=== PATIENT | female | born 1980 | race Caucasian/White ===

== ENCOUNTER 2020-02-04 18:50 | Emergency (ER) | payer SELFPAY ==
[2020-02-04 18:57] VITALS: BP 156/107; PULSE 102; RESP 18; TEMP 36.4; O2SAT 96; BMI 34.1
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
[2020-02-04 22:50] VITALS: BP 156/61; PULSE 72; RESP 18; O2SAT 95
[2020-02-06 07:48] LABS: Coronavirus Lab Test PTC NOT DETECTED
--- NOTE | 2020-02-06 08:58 | PC.NURSE ---
Pt called and notified of negative COVID test results
== END 2020-02-04 22:52 | disposition home or self-care (01) ==
PROVIDERS: Emergency Provider Emergency Medicine; PCP Family Medicine
DX: J06.9 Acute upper respiratory infection, unspecified (principal)
CPT/HCPCS: 12345; 71045; 87635; 99282; 99283

== ENCOUNTER 2020-02-23 13:33 | Emergency (ER) | payer MEDICAID, SELFPAY ==
[2020-02-23 13:40] VITALS: BP 167/90; PULSE 97; RESP 14; TEMP 37.7; O2SAT 98; BMI 36.1
[2020-02-23 13:59] VITALS: BP 121/64; PULSE 97; RESP 18; O2SAT 97
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
[2020-02-23] MEDS: acetaminophen 500 mg Tablet 1000 MG PO (14:15)
[2020-02-23 14:28] VITALS: BP 121/64; PULSE 88; RESP 18; O2SAT 95
[2020-02-23 15:41] VITALS: BP 140/91; PULSE 59; RESP 18; O2SAT 95
[2020-02-23] MEDS: ondansetron 4 MG Tablet PO (16:03)
[2020-02-23 16:05] VITALS: BP 139/79; PULSE 78; RESP 18; O2SAT 97
== END 2020-02-23 16:10 | disposition home or self-care (01) ==
PROVIDERS: Emergency Provider Physician Assistant; PCP Family Medicine
DX: S40.012A Contusion of left shoulder, initial encounter (principal); S20.212A Contusion of left front wall of thorax, initial encounter; Y04.2XXA Assault by strike against or bumped into by another person, initial encounter; Z79.82 Long term (current) use of aspirin
CPT/HCPCS: 12345; 70450; 70486; 71101; 72125; 73030; 99281; 99283; Q0162

== ENCOUNTER → 2020-04-20 10:35 | Outpatient (BNVA) | payer MEDICAID, SELFPAY | PROVIDERS: PCP Family Medicine; Visit Provider Obstetrics & Gynecology | DX: Z12.4 Encounter for screening for malignant neoplasm of cervix (principal); E28.2 Polycystic ovarian syndrome | CPT/HCPCS: 84402; 84403; 88175 ==

== ENCOUNTER → 2020-05-27 14:21 | Outpatient (BNVA) | payer MEDICAID, SELFPAY | PROVIDERS: PCP Family Medicine; Visit Provider Obstetrics & Gynecology | DX: N90.7 Vulvar cyst (principal) | CPT/HCPCS: 88304 ==

== ENCOUNTER → 2020-06-01 08:51 | Outpatient (BNVA) | payer MEDICAID, SELFPAY | PROVIDERS: PCP Family Medicine; Visit Provider Psychiatry & Neurology Psychiatry | DX: F43.12 Post-traumatic stress disorder, chronic (principal); F60.3 Borderline personality disorder; F31.9 Bipolar disorder, unspecified; F10.21 Alcohol dependence, in remission; F15.21 Other stimulant dependence, in remission; F41.1 Generalized anxiety disorder | CPT/HCPCS: 99204 ==

== ENCOUNTER → 2020-07-23 08:57 | Outpatient (BNVA) | payer MEDICAID, SELFPAY | PROVIDERS: PCP Family Medicine; Visit Provider Psychiatry & Neurology Psychiatry | DX: F31.9 Bipolar disorder, unspecified (principal); F43.12 Post-traumatic stress disorder, chronic; F60.3 Borderline personality disorder; F15.21 Other stimulant dependence, in remission; F10.21 Alcohol dependence, in remission | CPT/HCPCS: 99213; 99214 ==

== ENCOUNTER → 2020-07-26 09:12 | Outpatient (BNVA) | payer MEDICAID, SELFPAY | PROVIDERS: PCP Family Medicine; Visit Provider Psychiatry & Neurology Psychiatry | DX: F31.9 Bipolar disorder, unspecified (principal) | CPT/HCPCS: 80053; 80061; 83036; 84443; 85025 ==

== ENCOUNTER 2020-07-30 01:20 | Emergency (ER) | payer MEDICAID, SELFPAY ==
[2020-07-30 01:29] VITALS: BP 158/93; PULSE 77; RESP 18; TEMP 36.8; O2SAT 98; BMI 32.9
--- NOTE | 2020-07-30 01:34 | W.ED.URI ---
HPI - URI/Sore Throat General: Chief Complaint: Upper Respiratory Infection Stated Complaint: throat pain Time Seen by Provider: 07/30/20 01:30 History of Present Illness: HPI Narrative: Patient is a 39-year-old female comes to the ED with a sore throat. Symptoms started approximately 3 days ago. She now rates her sore throat an 8 out of 10 currently. Patient also says she has some dental pain in her back lower mandible right and left molars. Pain is located on right side of throat and she feels like the right side of her neck is tender and sore. She says she has had a fever at home, but she takes Tylenol for it and fever then resolves. She is also complaining of having some pain in the right ear. Denies any cough, shortness of breath, trouble breathing, chest pain, nausea/vomiting, abdominal pain, bladder or bowel symptoms. Associated symptoms: Reports ear or mastoid pain (right side) and fever(s); Deny abdominal pain, chills, chest pain, diarrhea, headache(s), nasal congestion, nausea or vomiting Review of Systems Const: Reports: fever(s); Denies: chills or fatigue Eyes: Denies: change in vision or eye discomfort ENMT: Reports: throat pain and ear or mastoid pain (right side); Denies: odynophagia, nasal discharge or nasal congestion Card: Denies: chest pain, palpitations, edema, swelling of feet/ankles, dyspnea on exertion or orthopnea Resp: Denies: dyspnea, productive cough or non-productive cough GI: Denies: abdominal pain, nausea, vomiting, diarrhea, constipation or hematochezia : Denies: flank pain, dysuria or hematuria Musc: Denies: neck pain, back pain or extremity swelling Skin/Breast: Denies: rash or new lesions Neuro: Denies: headache(s), numbness in extremities or weakness in extremities PFSH ED PFSH: Family History Mother Hyperlipidemia Hypertension Breast cancer Father Hypertension Denies family history of Colon cancer Ovarian cancer Diabetes Clotting disorder Uterine cancer Thyroid disease Stroke Social History Smoking and tobacco status: current some day smoker e-cigarettes E-Cigarette Details: vaporizer device Alcohol intake: never Female Reproductive History: Date of last menstrual period: 07/24/20 Physical Exam Const: COMMON NORMALS: no acute distress, patient oriented x3 and alert GENERAL APPEARANCE: cooperative and comfortable NUTRITIONAL APPEARANCE: overweight HENMT: COMMON NORMALS: normocephalic HEAD & SCALP: normocephalic TYMPANIC MEMBRANE: TM normal on the left and TM abnormal TM laterality: right Details: erythematous MOUTH: Normal oral and palatal mucosa present TEETH & GINGIVA: Yes caries (Extensive dental caries on teeth #32 and 16.), Yes gingiva abnormal edematous (Around tooth #32.) and Yes poor dentition THROAT: uvula midline, abnormal tonsil bilateral erythema and hypertrophy 1+; no exudates and posterior oropharynx abnormal erythema; no exudates Eye: COMMON NORMALS: Equal, round and reactive pupils present PUPIL: Yes Equal, round and reactive pupils present Neck/C-Spine: COMMON NORMALS: supple GENERAL: Yes normal visual inspection Lymph: LYMPHATIC: lymphadenopathy right submandibular single and tender 0.5 cm Resp: COMMON NORMALS: normal respiratory effort, No retractions, No use of accessory muscles and clear to auscultation bilaterally AUSCULTATION: clear to auscultation bilaterally Cardio: COMMON NORMALS: regular rate, regular rhythm, S1 normal heart sound present, S2 normal heart sound present, No gallops present (Cardio), No clicks present (Cardio), No murmurs present (Cardio) and Peripheral pulses 2+ throughout RATE: regular rate RHYTHM: regular rhythm HEART SOUNDS: S1 normal heart sound present and S2 normal heart sound present PERIPHERAL PULSES: Peripheral pulses 2+ throughout GI: COMMON NORMALS: Normal to inspection, nondistended, normoactive bowel sounds present, Soft to palpation, non-tender and no masses PALPATION: Yes Soft to palpation : COMMON NORMALS: Yes no CVA tenderness BLADDER/KIDNEY EXAM: Yes no CVA tenderness Back/Pelvis: COMMON NORMALS: no CVA tenderness Extremity: COMMON NORMALS: normal to inspection Neuro: COMMON NORMALS: patient oriented x3 and moves all extremities SENSORIUM/ORIENTATION: Yes alert Skin: GENERAL SKIN EXAM: dry skin Course Vital Signs: Vital signs: Vital Signs Temperature 98.2 F 07/30/20 01:29 Pulse Rate 77 07/30/20 01:29 Respiratory Rate 18 07/30/20 01:29 Blood Pressure 158/93 07/30/20 01:29 Pulse Oximetry 98 07/30/20 01:29 MDM - URI/Sore Throat MDM Narrative: Medical decision making narrative: Patient is a 39-year-old female comes to the ED with sore throat, ear pain and right lower mandible and neck pain. Exam shows patient with extensive dental caries especially on back right molar with Gingival edema around tooth. She has some mild erythema in the back of her throat but no exudates or pus seen. Right TM has some erythema. Patient says she has been trying to get into a dentist for the past couple weeks. Strep was negative. Patient was diagnosed with otitis media in the right ear, viral pharyngitis and dental caries. She was sent home with a prescription for clindamycin and Medrol Dosepak. Return to ED precautions given. Follow-up with PCP or dentist in the next 7 to 10 days for reevaluation. Patient understood agree with plan. Lab Data: Attestation: I reviewed the patient's lab results. Labs: Lab Results 07/30/20 Range/Units 02:19 Group A Strep Rapi d Negative (Negative) Discharge Plan Discharge Patient Disposition: Home Clinical Impression: Dental caries Pharyngitis Qualifiers: Pharyngitis/tonsillitis etiology: unspecified etiology Qualified Code(s): J02.9 - Acute pharyngitis, unspecified Otitis media Qualifiers: Otitis media type: serous Chronicity: acute Laterality: right Recurrence: non-recurrent Qualified Code(s): H65.01 - Acute serous otitis media, right ear Condition: Stable Prescriptions: New clindamycin HCl 150 mg capsule 300 mg PO QID 7 Days Qty: 56 RF: 0 Medrol (Alfonso) 4 mg tablets,dose pack See Rx Instructions .ROUTE .COMPLEX Qty: 21 RF: 0 No Action olanzapine [Zyprexa] 5 mg tablet 5 mg PO .HS Qty: 30 RF: 2 prazosin 5 mg capsule 5 mg PO .HS Qty: 30 RF: 1 lidocaine-epinephrine (PF) 2 %-1:200,000 solution 1 ml SUBCUT ONCE Qty: 20 RF: 0 povidone-iodine [Betadine Swabsticks] 10 % swab 1 applic topical ONCE Qty: 150 RF: 0 lidocaine-epinephrine [Xylocaine with Epinephrine] 2 %-1:100,000 solution 20 ml SUBCUT ONCE Qty: 1 RF: 0 Cannabis See Rx Instructions .ROUTE .COMPLEX RF: 0 Discharge Orders: Discharge ED (Routine); Ordered 07/30/20 Ordered By: Anoop Goddard Referrals: Karen Adkins MD [Primary Care Provider] - Discharge Diet: Regular Discharge Activity: Resume usual activity Patient Instructions: Otitis Media - Adult, Dental Caries (ED), Pharyngitis (ED) Activity Restrictions/Additional Instructions: Follow-up with medical provider as directed in the next 7 to 10 days for reevaluation. Take medications as prescribed. Take [id number] Tylenol or ibuprofen for pain or fevers. Return to the ER or your medical provider if condition worsens. Please read and understand discharge instructions. If any questions, please ask. Coding Level of Care Code ED Wedding Makeup Artist for Mel Fwd Exam Comprehensive
[2020-07-30 02:30] LABS: Rapid Strep A Test Negative (Negative)
[2020-07-30] MEDS: HYDROcodone-acetaminophen 7.5-325 mg Tablet 1 TAB PO (02:41)
[2020-07-30] MEDS: clindamycin 150 mg Capsule 300 MG PO (02:41)
[2020-07-30 02:58] VITALS: PULSE 60; RESP 16; O2SAT 95
== END 2020-07-30 02:59 | disposition home or self-care (01) ==
PROVIDERS: Emergency Provider Physician Assistant; PCP Family Medicine
DX: J02.9 Acute pharyngitis, unspecified (principal); K02.9 Dental caries, unspecified; H65.01 Acute serous otitis media, right ear; F17.290 Nicotine dependence, other tobacco product, uncomplicated
CPT/HCPCS: 12345; 87081; 87880; 99281; 99283

== ENCOUNTER → 2020-08-09 09:45 | Outpatient (BNVA) | payer BC, SELFPAY | PROVIDERS: PCP Family Medicine; Visit Provider Psychiatry & Neurology Psychiatry | DX: F31.9 Bipolar disorder, unspecified (principal); F60.3 Borderline personality disorder; F43.12 Post-traumatic stress disorder, chronic | CPT/HCPCS: 99213 ==

== ENCOUNTER → 2020-08-16 08:12 | Outpatient (BNVA) | payer BC, SELFPAY | PROVIDERS: PCP Family Medicine; Visit Provider Psychiatry & Neurology Psychiatry | DX: F31.9 Bipolar disorder, unspecified (principal); F43.12 Post-traumatic stress disorder, chronic; F15.21 Other stimulant dependence, in remission; F10.21 Alcohol dependence, in remission; F60.3 Borderline personality disorder | CPT/HCPCS: 99213 ==

== ENCOUNTER → 2020-09-27 07:48 | Outpatient (BNVA) | payer BC, SELFPAY | PROVIDERS: PCP Family Medicine; Visit Provider Psychiatry & Neurology Psychiatry | DX: F60.3 Borderline personality disorder (principal); F31.9 Bipolar disorder, unspecified; F43.12 Post-traumatic stress disorder, chronic; F15.21 Other stimulant dependence, in remission; F10.21 Alcohol dependence, in remission | CPT/HCPCS: 99214 ==

== ENCOUNTER → 2020-11-24 14:53 | Outpatient (BNVA) | payer BC, SELFPAY | PROVIDERS: PCP Family Medicine; Visit Provider Counselor Mental Health | DX: F43.12 Post-traumatic stress disorder, chronic (principal); F31.9 Bipolar disorder, unspecified; F60.3 Borderline personality disorder; F15.21 Other stimulant dependence, in remission; F10.21 Alcohol dependence, in remission | CPT/HCPCS: 90834 ==

== ENCOUNTER 2020-12-08 13:56 | Emergency (ER) | payer BC, MEDICAID, SELFPAY ==
[2020-12-08 14:08] VITALS: BP 133/98; PULSE 70; RESP 18; TEMP 36.8; O2SAT 98; BMI 36.1
--- NOTE | 2020-12-08 14:31 | US_ITS ---
WS: [id number] Gallbladder ultrasound, 12/08/2020 Clinical Data: RUQ pain Comparison: None. Findings: The gallbladder shows no sludge or stone. The wall measures 0.2 cm with no pericholecystic fluid. The common bile duct is 0.4 cm and there are no intrahepatic ductal abnormalities. Liver shows no cysts, masses or dilated intrahepatic ducts. The pancreas is partly obscured by overlying bowel gas but no proximal cyst, pseudocyst, or evidence of pancreatitis is noted. Right kidney measures 11.1 cm and no cyst, masses or hydronephrosis can be seen. There may be a small lower pole right renal calculus. The aorta and inferior vena cava show no vascular abnormalities. US/US gall bladder [id number] Impression: 1. Negative right upper quadrant ultrasound. 2. Possible small inferior pole right renal calculus.
[2020-12-08 16:36] LABS: Basophils % 0.3 %; Eosinophils # 0.2 10^3/uL (0.0-0.8); Eosinophils % 1.6 %; Hematocrit 46.3 % (37.0-47.0); Hemoglobin 14.8 g/dL (11.5-15.3); Lymphocytes # 2.2 10^3/uL (0.8-4.8); Lymphocytes % 21.7 %; Mean Corpuscular Hemoglobin 28.5 pg (28.0-34.0); Mean Platelet Volume 11.5 fL (7.4-10.4); Monocytes # 0.6 10^3/uL (0.2-0.9); Monocytes % 5.5 %; Neutrophils # 7.09 10^3/uL (1.8-7.7); Neutrophils % 70.5 %; Nucleated Red Blood Cells % 0 %; Platelet Count 269 10^3/cmm (130-400); Red Cell Distribution Width 13.1 % (12.1-15.1); White Blood Count 10.1 10^3/uL (4.0-10.0)
--- NOTE | 2020-12-08 16:53 | CTR_ITS ---
PROCEDURE INFORMATION: Exam: CT Abdomen And Pelvis With Contrast Exam date and time: 12/08/2020 5:28 PM Age: 40 years old Clinical indication: Nausea and vomiting; Abdominal pain; Localized; Right upper quadrant (ruq); Prior surgery; Surgery type: Tubal; Additional info: Epigastric/ ruq abdominal tenderness TECHNIQUE: Imaging protocol: Computed tomography of the abdomen and pelvis with contrast. Radiation optimization: All CT scans at this facility use at least one of these dose optimization techniques: automated exposure control; mA and/or kV adjustment per patient size (includes targeted exams where dose is matched to clinical indication); or iterative reconstruction. Contrast material: OMNI 300; Contrast volume: 95 ml; Contrast route: INTRAVENOUS (IV); COMPARISON: CT abdomen pelvis w con* [id number] 09/22/2018 5:58 PM RADIATION DOSE METRICS: Total DLP (mGy-cm): 1819.2 FINDINGS: Lungs: Visualized lungs are clear. Pleural spaces: No pleural effusion. Heart: Visualized portions of the heart are unremarkable. Liver: The liver is unremarkable. Gallbladder and bile ducts: The gallbladder is unremarkable. No biliary ductal dilatation. Pancreas: The pancreas is unremarkable. No pancreatic ductal dilatation. Spleen: The spleen is unremarkable. Small splenule in the left upper quadrant. Adrenal glands: The right and left adrenal glands are unremarkable. Kidneys and ureters: Subcentimeter hypodense foci in both right and left kidneys that are too small to characterize, however likely represent small cysts. The right and left ureters are unremarkable. Stomach and bowel: No obstruction. No mucosal thickening. Appendix: The appendix is visualized and is unremarkable. No findings to suggest acute appendicitis. Intraperitoneal space: No free intraperitoneal air. No ascites. No loculated fluid collections to suggest an abscess. Vasculature: Mild atherosclerotic changes in the visualized arteries. No evidence for aortic aneurysm or aortic dissection. Hepatic veins, portal veins, splenic vein, and SMV are patent. Incidental note of a retroaortic left renal vein. Lymph nodes: No lymphadenopathy. Urinary bladder: The bladder is incompletely filled, which can limit evaluation. No focal abnormality in the bladder however. Reproductive: Small calcification in the right uterine myometrium is stable. No other focal abnormality in the uterus. Multiple subcentimeter follicles in both right and left ovaries. Bones/joints: Mild degenerative changes at both the right and left hips. Mild degenerative changes of the right and left sacroiliac joints. Bilateral pars defects at L3 and L4. Grade 1 anterolisthesis of L4 on L5. Mild spinal canal stenosis at L2-L3, L3-L4, and L4-L5. Multilevel foraminal stenosis of varying severity in the lumbar spine. Soft tissues: There is a partially visualized small mass in the lower right breast. The visualized mass is mildly increased in size, measuring 0.9 x 1.2 cm, previously measured 9.1 x 8.9 mm (series 2, image 1). It is uncertain whether this could be due to differences in technique between the 2 studies versus an actual increase in size of the mass. No acute abnormality in the extra-abdominal soft tissues. CT/CT abdomen pelvis w con* [id number] IMPRESSION: 1. No acute abnormality in the abdomen or pelvis. 2. There is a partially visualized small mass in the lower right breast. The visualized mass is mildly increased in size. It is uncertain whether this could be due to differences in technique between the 2 studies versus an actual increase in size of the mass. Recommend correlation with physical examination, follow-up mammography is also recommended. 3. Incidental/nonacute findings are listed in the report. COMMENTS: 1. Urgent results were discussed with DEISREE Trivedi on 12/08/2020 at 6:02 PM CDT. 2. Consistent with the [employer]'s Incidental Findings Committee white paper (J Am Nolvia Radiol 2018): Any incidental renal lesion less than 1 cm or classified as too small to characterize, or any incidental cystic renal lesion characterized as simple-appearing, is likely benign. No follow-up imaging is recommended for these lesions per consensus recommendations based on imaging criteria. Radiation Dose CTDIVOL = (mGy): DLP = 1819.2 (mGy-cm)
[2020-12-08 17:00] LABS: HCG, Serum Qual Negative (Negative)
[2020-12-08 17:02] LABS: Alanine Aminotransferase 19 U/L (0-33); Albumin Level 4.5 g/dL (3.5-5.2); Alkaline Phosphatase 84 IU/L (35-105); Anion Gap 12.2 (5-19); Aspartate Amino Transferase 15 U/L (0-32); Blood Urea Nitrogen 10 mg/dL (6-20); Calcium 9.1 mg/dL (8.5-10.5); Carbon Dioxide 28 mmol/L (22-29); Chloride 105 mmol/L (98-107); Globulin 2.7 g/dL (1.3-4.6); Glomerular Filtration Rate 111.3 mL/min (90-130); Glucose 95 mg/dL (65-115); Lipase 26 U/L (13-60); Osmolality Calculated 291 mOsm/kg (285-295); Potassium 4.2 mmol/L (3.5-5.1); Sodium 141 mmol/L (136-145); Total Bilirubin 0.3 mg/dL (0.15-1.2); Total Protein 7.2 g/dL (6.6-8.7)
[2020-12-08 17:14] VITALS: BP 137/91; PULSE 70; RESP 18; O2SAT 96
[2020-12-08 17:31] LABS: Add Urine Microscopic? YES; Bilirubin Urine Neg (Negative); Blood Urine Trace (Negative); Glucose Urine UA Norm (Normal); Ketones Urine 1+ (Negative); Leukocyte Esterase Urine 1+ (Negative); Nitrate Urine Negative (Negative); Protein Urine Neg (Negative); Urine Appearance Hazy (CLEAR); Urine Color Yellow (Yellow); Urobilinogen Urine 4 mg/dL (Negative); pH Urine 5 (5-7)
[2020-12-08] MEDS: iohexol 300 mg/mL 100 mL Btl IV (17:35)
[2020-12-08 17:57] VITALS: BP 133/71; PULSE 70; RESP 18; O2SAT 96
[2020-12-08 17:59] LABS: RBC Urine 0-4 /hpf (0-2); Squamous Epithelial Cell Urine 25-40 /hpf (0-5)
[2020-12-08 18:00] LABS: Add Urine Culture? No; Bacteria Urine 2+ /hpf; Mucus Urine 2+ /hpf
--- NOTE | 2020-12-08 18:39 | ED_ITS ---
HPI - Abdominal Pain General: Chief Complaint: Abdominal Pain Stated Complaint: SEVERE R SIDE PAIN,PAIN IN R SHOULDER,N/V Time Seen by Provider: 12/08/20 16:45 History of Present Illness: HPI narrative: The patient is a 40-year-old female who comes to the ER complaining of epigastric and right upper quadrant pain for the past 3 days she says she also has severe nausea and vomiting. Denies diarrhea. She said she has had a problem with her gallbladder for the past 5 years and has not sought treatment for it. She did visit a ED in [place] approximately 6 months ago where she says she had a HIDA scan that showed borderline functioning of her gallbladder. I recommended she follow-up with a general surgeon outpatient for this complaint. I have placed a case management referral to help her get an appointment for this. MD elicited complaint: abdominal pain Onset (ago): day(s) (3) Pain Consistency: intermittent Location: RUQ Severity: moderate Quality: cramping and sharp Radiation: epigastric Migration to: no migration Exacerbating factors: eating Relieving factors: nothing Associated Symptoms: Reports nausea and vomiting; Denies diarrhea Related Data: Date of Last Menstrual Period: 07/24/20 Review of Systems General: Reports: 10 or more systems reviewed and unremarkable except in HPI and below Const: Denies: fatigue Eyes: Denies: change in vision, blurry vision or eye redness ENMT: Denies: throat pain, swelling of lips/tongue, ear or mastoid pain or nasal congestion Card: Denies: chest pain, palpitations, irregular heart rhythm, edema, dyspnea on exertion or orthopnea Resp: Denies: dyspnea, productive cough or non-productive cough GI: Reports: abdominal pain, nausea and vomiting; Denies: diarrhea : Denies: flank pain, difficulty voiding, urinary frequency or urinary urgency Musc: Denies: neck pain, back pain, extremity pain, joint pain, joint redness, limited range of motion or muscle weakness Skin/Breast: Denies: rash, pruritus, erythema, skin pain or skin tenderness Neuro: Denies: headache(s), numbness in extremities, weakness in extremities, sensory changes, difficulty walking, dizziness, confusion or Slurred speech present Psych: Denies: anxiety or depression Endo: Denies: polyuria All/Imm: Denies: urticaria, throat swelling or tongue swelling PFSH ED PFSH: Family History Mother Hyperlipidemia Hypertension Breast cancer Father Hypertension Denies family history of Colon cancer Ovarian cancer Diabetes Clotting disorder Uterine cancer Thyroid disease Stroke Social History Smoking and tobacco status: current some day smoker e-cigarettes E-Cigarette Details: vaporizer device Alcohol intake: never Female Reproductive History: Date of last menstrual period: 07/24/20 Physical Exam Const: COMMON NORMALS: no acute distress, average body habitus, patient oriented x3, no limitations, healthy appearing, alert and well nourished GENERAL APPEARANCE: cooperative, comfortable, well kempt and well developed ORIENTATION/CONSCIOUSNESS: Yes awake, Yes oriented to person, Yes oriented to place and Yes oriented to time HENMT: COMMON NORMALS: normocephalic, external ears normal and Normal external nose present HEAD & SCALP: normal to inspection and normocephalic NOSE: Normal external nose present EXTERNAL EAR: Yes external ears normal MOUTH: Normal oral and palatal mucosa present THROAT: posterior oropharynx normal Eye: COMMON NORMALS: Equal, round and reactive pupils present and EOMs intact bilaterally GENERAL EYE: appearance normal, both eyes and all related structures PUPIL: Yes Equal, round and reactive pupils present Neck/C-Spine: COMMON NORMALS: full ROM, no lymphadenopathy, no meningeal signs and no JVD GENERAL: Yes normal visual inspection Lymph: LYMPHATIC: no lymphadenopathy noted Chest: COMMONS NORMALS: normal inspection of the chest and normal palpation of entire chest wall Resp: COMMON NORMALS: normal respiratory effort, No retractions, No use of accessory muscles, clear to auscultation bilaterally and percussion normal EFFORT & INSPECTION: Yes able to speak in complete sentences AUSCULTATION: clear to auscultation bilaterally PERCUSSION: percussion normal Cardio: COMMON NORMALS: no JVD, regular rate, regular rhythm, S1 normal heart sound present, S2 normal heart sound present and Peripheral pulses 2+ throughout RATE: regular rate RHYTHM: regular rhythm HEART SOUNDS: S1 normal heart sound present and S2 normal heart sound present PERIPHERAL PULSES: Peripheral pulses 2+ throughout GI: COMMON NORMALS: Normal to inspection, nondistended, normoactive bowel sounds present, Soft to palpation and no masses INSPECTION: Yes normal to i nspection PALPATION: Yes Soft to palpation and Yes Tenderness to palpation present (GI) GI image (female): 1. Right upper quadrant abdominal tenderness. Belly soft. No rebound tenderness. Normal bowel sounds. : COMMON NORMALS: Yes no CVA tenderness BLADDER/KIDNEY EXAM: Yes no CVA tenderness Back/Pelvis: COMMON NORMALS: no CVA tenderness, thoracic and lumbar spine normal to inspection, no thoracic nor lumbar tenderness and thoraco-lumbar ROM normal Extremity: COMMON NORMALS: normal to inspection, full ROM, capillary refill normal, no joint enlargement and no pedal edema GENERAL: Yes normal exam ex cept as noted Neuro: COMMON NORMALS: patient oriented x3, CN's II-XII intact bilaterally, moves all extremities, no focal motor deficits, no sensory deficits noted and gait normal SENSORIUM/ORIENTATION: Yes alert, Yes oriented to person, Yes oriented to place and Yes oriented to time MENINGEAL SIGNS: Yes no meningeal signs Psych: COMMON NORMALS: mental status grossly normal, Normal thought process present, cooperative, normal affect and speech normal APPEARANCE: Yes well kempt ATTITUDE: Yes calm SPEECH: Yes normal speech THOUGHT PROCESS: Normal thought process present Skin: COMMON NORMALS: no rashes or lesions noted GENERAL SKIN EXAM: no rashes or lesions noted Course Vital Signs: Vital signs: Vital Signs Temperature 98.3 F 12/08/20 14:08 Pulse Rate 70 12/08/20 17:57 Respiratory Rate 18 12/08/20 17:57 Blood Pressure 133/71 12/08/20 17:57 Pulse Oximetry 96 12/08/20 17:57 MDM - Abdominal Pain MDM Narrative: Medical decision making narrative: For her right upper quadrant pain. CT shows no acute abnormalities related to this. She says 6 months ago she had a HIDA scan which showed borderline functioning and I recommended she call [facility] and get the results of that and bring it to a primary care physician the visit and general surgeon visit to discuss further. I have placed a case management referral to help her get appointments with both of these. Incidentally there is a right lower breast mass that is caught on the top of the abdominal pelvic CT. I again recommended she follow-up with a primary care physician and general surgeon to discuss this and get a mammogram as an outpatient to evaluate her both of her breasts entirely. I have discussed that this needs to be taken seriously as it could be cancerous and early diagnosis leads to better prognosis of disease and less likely to have early from this. She understands and will follow up. I also told her if she does not get an appointment in 2 weeks to call us and make sure that we are working on an appointment and if her symptoms worsen to come to the ER at any time. Lab Data: Labs: Lab Results 12/08/20 12/08/20 12/08/20 Range/Units 16:20 16:20 16:20 WBC 10.1 H (4.0-10.0) 10^3/ uL RBC 5.20 (4.1-5.3) 10^6/u L Hgb 14.8 (11.5-15.3) g/dL Hct 46.3 (37.0-47.0) % MCV 89.0 (81-99) fL MCH 28.5 (28.0-34.0) pg MCHC 32.0 (30.0-36.0) g/dL RDW 13.1 (12.1-15.1) % Plt Count 269 (130-400) 10^3/c mm MPV 11.5 H (7.4-10.4) fL Neut % (Auto) 70.5 % Lymph % (Auto) 21.7 % [place] % (Auto) 5.5 % Eos % (Auto) 1.6 % Baso % (Auto) 0.3 % Neut # (Auto) 7.09 (1.8-7.7) 10^3/u L Lymph # (Auto) 2.2 (0.8-4.8) 10^3/u L [place] # (Auto) 0.6 (0.2-0.9) 10^3/u L Eos # (Auto) 0.2 (0.0-0.8) 10^3/u L Baso # (Auto) 0.0 (0.0-0.1) 10^3/u L Nucleated RBC % (a uto) 0 % Nucleated RBCs # 0.0 /100WBC Sodium 141 (136-145) mmol/L Potassium 4.2 (3.5-5.1) mmol/L Chloride 105 (98-107) mmol/L Carbon Dioxide 28 (22-29) mmol/L Anion Gap 12.2 (5-19) BUN 10 (6-20) mg/dL Creatinine 0.6 (0.5-0.9) mg/dL GFR Calculation 111.3 (90-130) mL/min Glucose 95 (65-115) mg/dL Calculated Osmolal ity 291 (285-295) mOsm/k g Calcium 9.1 (8.5-10.5) mg/dL Total Bilirubin 0.3 (0.15-1.2) mg/dL AST 15 (0-32) U/L ALT 19 (0-33) U/L Alkaline Phosphata se 84 (35-105) IU/L Total Protein 7.2 (6.6-8.7) g/dL Albumin 4.5 (3.5-5.2) g/dL Globulin 2.7 (1.3-4.6) g/dL Lipase 26 (13-60) U/L HCG, Qual Negative (Negative) Urine Color (Yellow) Urine Appearance (CLEAR) Urine pH (5-7) Ur Specific Gravit y (1.005-1.030) Urine Protein (Negative) Urine Glucose (UA) (Normal) Urine Ketones (Negative) Urine Blood (Negative) Urine Nitrate (Negative) Urine Bilirubin (Negative) Urine Urobilinogen (Negative) mg/dL Ur Leukocyte Rosamaria ase (Negative) Urine RBC (0-2) /hpf Urine WBC (0-5) /hpf Ur Squamous Epith Cells (0-5) /hpf Amorphous Sediment Urine Bacteria (NONE) /hpf Urine Mucus /hpf 12/08/20 Range/Units 17:18 WBC (4.0-10.0) 10^3/ uL RBC (4.1-5.3) 10^6/u L Hgb (11.5-15.3) g/dL Hct (37.0-47.0) % MCV (81-99) fL MCH (28.0-34.0) pg MCHC (30.0-36.0) g/dL RDW (12.1-15.1) % Plt Count (130-400) 10^3/c mm MPV (7.4-10.4) fL Neut % (Auto) % Lymph % (Auto) % [place] % (Auto) % Eos % (Auto) % Baso % (Auto) % Neut # (Auto) (1.8-7.7) 10^3/u L Lymph # (Auto) (0.8-4.8) 10^3/u L [place] # (Auto) (0.2-0.9) 10^3/u L Eos # (Auto) (0.0-0.8) 10^3/u L Baso # (Auto) (0.0-0.1) 10^3/u L Nucleated RBC % (a uto) % Nucleated RBCs # /100WBC Sodium (136-145) mmol/L Potassium (3.5-5.1) mmol/L Chloride (98-107) mmol/L Carbon Dioxide (22-29) mmol/L Anion Gap (5-19) BUN (6-20) mg/dL Creatinine (0.5-0.9) mg/dL GFR Calculation (90-130) mL/min Glucose (65-115) mg/dL Calculated Osmolal ity (285-295) mOsm/k g Calcium (8.5-10.5) mg/dL Total Bilirubin (0.15-1.2) mg/dL AST (0-32) U/L ALT (0-33) U/L Alkaline Phosphata se (35-105) IU/L Total Protein (6.6-8.7) g/dL Albumin (3.5-5.2) g/dL Globulin (1.3-4.6) g/dL Lipase (13-60) U/L HCG, Qual (Negative) Urine Color Yellow (Yellow) Urine Appearance Hazy A (CLEAR) Urine pH 5 (5-7) Ur Specific Gravit y 1.020 (1.005-1.030) Urine Protein Neg (Negative) Urine Glucose (UA) Norm (Normal) Urine Ketones 1+ H (Negative) Urine Blood Trace H (Negative) Urine Nitrate Negative (Negative) Urine Bilirubin Neg (Negative) Urine Urobilinogen 4 H (Negative) mg/dL Ur Leukocyte Rosamaria ase 1+ H (Negative) Urine RBC 0-4 H (0-2) /hpf Urine WBC 10-15 H (0-5) /hpf Ur Squamous Epith Cells 25-40 H (0-5) /hpf Amorphous Sediment Not Reportable Urine Bacteria 2+ H (NONE) /hpf Urine Mucus 2+ /hpf Discharge Plan Discharge Patient Disposition: Home Clinical Impression: Vomiting, Breast mass Condition: Stable Prescriptions: No Action Cannabis See Rx Instructions .ROUTE .COMPLEX RF: 0 Zyprexa 5 mg tablet 10 mg PO BEDTIME RF: 0 prazosin 5 mg capsule 5 mg PO BEDTIME RF: 0 Pristiq 100 mg tablet extended release 24 hr 50 mg PO DAILY RF: 0 Discharge Orders: Discharge ED (Routine); Ordered 12/08/20 Ordered By: Joby Hernadez Referrals: Brissa Cai DO [Primary Care Provider] - Discharge Diet: Advance as tolerated Discharge Activity: Resume usual activity Patient Instructions: Opioid Safety Activity Restrictions/Additional Instructions: You have vomiting and clearly have had a HIDA scan which has shown borderline gallbladder functioning. Please call [facility] and get the results of that test and bring it to your primary care doctor within the next week and a general surgeon. I have placed a referral to our counter caser to help you get an appointment with both of those doctors. Also your primary care physicians you need to get a mammogram as there is a small 1 cm mass in your right lower br east that is seen. This will better help evaluate both of your breast entirely as well as the mass seen on the CAT scan. Please be sure to follow-up within the next couple weeks as early diagnosis leads to better prognosis and treatment of cancers. If you do not hear from us within a week or 2 please call us to help get yourself an appointment. Coding Level of Care Code ED Assistant Golf Professional for Mel Fwdarien Exam Comprehensive
[2020-12-08 19:04] VITALS: BP 133/71; PULSE 70; RESP 18; O2SAT 96
--- NOTE | 2020-12-09 15:43 | DCPLANNER ---
Addendum entered by Georgette Delacruz 12/09/20 15:45: Patient also had message to schedule a follow up appointment for patient with pcp, correctional case manager spoke with patient. Patient stated that she has an appointment with a primary care physician on 12.10.20. Original Note: assistant department manager had message to schedule a follow up appointment for patient with general surgery. assistant department manager emailed patients information to Mari at [facility] General surgery. Patients information will be printed and reviewed. Clinic will call patient with appointment information.
--- NOTE | 2020-12-15 09:01 | DCPLANNER ---
Patient has a follow up appointment scheduled for , December 16, 2020 at 1:[address] Nina. Clinic will call patient with appointment information.
--- NOTE | 2021-02-21 08:14 | DCPLANNER ---
Patient had a follow up appointment scheduled for 12.16.[address] Nina at general surgery - patient did attend appointment.
== END 2020-12-08 19:00 | disposition home or self-care (01) ==
PROVIDERS: Physician Assistant; Emergency Provider Family Medicine; PCP Family Medicine
DX: R11.11 Vomiting without nausea (principal); N63.10 Unspecified lump in the right breast, unspecified quadrant; F17.290 Nicotine dependence, other tobacco product, uncomplicated
CPT/HCPCS: 36415; 74177; 76705; 80053; 81001; 83690; 84703; 85025; 99283; Q9967

== ENCOUNTER 2020-12-15 07:45 | Outpatient (CLI) | payer BC, MEDICAID, SELFPAY ==
--- NOTE | 2020-12-15 07:50 | MM_ITS ---
WS: [id number] BILATERAL DIGITAL DIAGNOSTIC MAMMOGRAM MAMMOGRAPHY WITH CAD CLINICAL INFORMATION: N63.10 - Unspecified lump in the right breast, unspecifie... TECHNIQUE: Bilateral CC, MLO, and ML views. FINDINGS: Scattered fibroglandular densities bilaterally. Well-circumscribed ovoid lesion measuring 11 mm infer ior outer quadrant right breast anterior depth. Ultrasound is pending. Incidental punctate calcifications. Left breast is unremarkable. No suspicious focal mass, asymmetry, calcifications, or architectural distortion. No evidence of emma gnancy. ULTRASOUND BREAST RIGHT TECHNIQUE: Ultrasound right breast focused area of concern. CLINICAL INFORMATION: N63.10 - Unspecified lump in the right breast, unspecifie... COMPARISON: None. FINDINGS: Ultrasound right breast lesion o'clock position 2 cm from the nipple. There is a well-circumscribed h ypoechoic solid nodule measuring 1.2 x 1.0 x 0.8 cm. Findings may represent fibroadenoma in a patient this age but nonspecific. Recommend further evaluation with ultrasound-guided biopsy. MM/[place] [id number] IMPRESSION: BI-RADS: 4-Suspicious Finding-Biopsy Should Be Considered FOLLOW UP: US Guided Biopsy Recommended RECOMMEND ULTRASOUND-GUIDED BIOPSY RIGHT BREAST
== END 2020-12-15 07:46 | disposition home or self-care (01) ==
LOC: RADSHAW 07:46
PROVIDERS: PCP Family Medicine; Visit Provider Obstetrics & Gynecology
DX: N63.13 Unspecified lump in the right breast, lower outer quadrant (principal)
CPT/HCPCS: 76642; 77066

== ENCOUNTER → 2020-12-16 15:32 | Outpatient (BNVA) | payer BC, MEDICAID, SELFPAY | PROVIDERS: PCP Family Medicine; Visit Provider Surgery | DX: Z20.822 Contact with and (suspected) exposure to COVID-19 (principal); R10.9 Unspecified abdominal pain | CPT/HCPCS: 87635 ==

== ENCOUNTER 2020-12-20 10:25 | Day surgery (SDC) | payer BC, MEDICAID, SELFPAY ==
[2020-12-17 13:59] VITALS: BMI 35.2
[2020-12-20] VITALS (10 sets, daily range): BP systolic 117–177; BP diastolic 69–99; PULSE 46–86; RESP 12–20; TEMP 36.1–36.6; O2SAT 94–100
[2020-12-20 10:55] LABS: OR HCG Qualitative Urine Negative (Negative)
[2020-12-20] MEDS: sodium chloride 0.9% 1,000 ML 30 ML IV (11:02)
[2020-12-20] MEDS: acetaminophen 1,000 MG/100 ML PIGGYBACK 400 MG IV (11:02)
[2020-12-20] MEDS: heparin 5,000 unit/mL INJ 1 mL 2000 UNIT SUBCUT (11:03)
--- NOTE | 2020-12-20 11:52 | W.PM.OPSUD ---
Surgery/Procedure H&P Update DATE OF PROCEDURE: December 20, 2020 DATE H&P PERFORMED: 12/16/20 H&P UPDATE INFORMATION: I have reviewed H&P completed within last 30 days, I have examined patient prior to procedure and Changes to prior documentation as noted here CHANGES TO PREVIOUS DOCUMENTATION: HIDA scan report was retrieved from [employer] and showed a 41% ejection fraction and the patient reports to me that she had episodes of bloating, vomiting and right upper quadrant abdominal pain. PREOP DIAGNOSIS: Biliary colic PRIMARY INDICATION FOR PROCEDURE: The same PLANNED PROCEDURE: Operation Date: 12/20/20 11:50 Proposed Procedures p Laparoscopic Cholecystectomy 92932 K80.2(Not Applicable) - Eleno Nina MD
[2020-12-20] MEDS: midazolam 1 mg/mL INJ 2 mL 2 MG IVP (12:44)
[2020-12-20] MEDS: ampicillin-sulbactam 3 GM in sodium chloride 0.9% (plus) 50 ML IV (13:00)
--- NOTE | 2020-12-20 13:07 | ANES.PREANE2 ---
Pre-Anesthetic Assessment Pre-Anesthetic Assessment: Height/Weight: Height 1.65 m Weight 96.162 kg Temp Pulse Resp BP Pulse Ox 97 F L 86 18 117/99 97 12/20/20 10:36 12/20/20 10:36 12/20/20 10:36 12/20/20 10:36 12/20/20 10:36 Preop Diagnosis: Biliary colic Proposed Procedure: Operation Date: 12/20/20 11:50 Proposed Procedures p Laparoscopic Cholecystectomy 34574 K80.2(Not Applicable) - Eleno Nina MD Was Beta Ramirez taken within 24 hours: N/A Was Clonidine taken within 24 hours: N/A Last intake: Intake Last Liquid Date 12/20/20 Last Liquid Time 21:30 Last Solid Date 12/19/20 Last Solid Time 19:00 Social: Social History: Alcohol and Tobacco Exam: Pre-Anes Outpt Exam: alert, oriented x 3 and regular rate & rhythm Airway: Submandibular: WNL Cervical ROM: WNL MP: 2 Dentition: Chipped Additional comments: Poor dentition Pulmonary: Pulmonary: COPD GI: GI: GERD Metabolic: Metabolic: Morbid obesity Neuropsych: Neuropsych: Bipolar Anesthetic Plan: ASA status: 3 Anesthesia: General Risk of > 500 ml blood loss (7ml/kg in children): No Meds/Allergies Current Medications: Current Medications Generic Name Dose Route Start Last Admin Trade Name Freq PRN Reason Stop Dose Admin Sodium Chloride 1,000 mls @ 30 ml s/hr 12/20/20 09:45 12/20/20 11:02 Sodium Chloride 0.9% IV 12/21/20 09:44 30 mls/hr .Q24H MANUEL Administration Midazolam HCl 2 mg 12/20/20 09:41 12/20/20 12:44 Midazolam 1 Mg/M l Inj 2 Ml IVP 2 mg Q5M PRN Administration Preop Anxiety PFSH Anesthesia PFSH: Family History Mother Hyperlipidemia Hypertension Breast cancer Father Hypertension Denies family history of Colon cancer Ovarian cancer Diabetes Clotting disorder Uterine cancer Thyroid disease Stroke Social History Smoking and tobacco status: current some day smoker e-cigarettes E-Cigarette Details: vaporizer device Alcohol intake: never Female Reproductive History: Date of last menstrual period: 07/24/20 Data Anesthesia Other Labs: Laboratory Results - last 48 hr 12/20/20 10:32 Urine HCG, Qual Negative Cardiac Studies: No Data to Display
[2020-12-20] MEDS: lidocaine 2% INJ 20 mL INJECTION (13:33)
--- NOTE | 2020-12-20 14:24 | P.OP_ITS ---
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 Full H&P per chart and informed consent. Procedure: Patient was identified in the holding area and taken back to the operative suite, placed in supine position intubated by anesthesia . Time-out was done verifying the patient's name/date of /planned procedure and destination after the procedure, all were in agreement. SCDs confirmed to be functioning, preoperative antibiotics administered per protocol, and beta carla protocol was confirmed. Patient was appropriately secured to the table, footboard was applied to the OR table, before prep and drape anesthesia was asked to tilt the table back and forth to make sure that the patient is appropriately secured and she was. Prep and drape of the abdomen was done under the usual sterile technique, followed by that infra infraumbilical transverse skin incision coinciding with previous scar,skin incision was done by a 11 blade knife, and stay sutures were applied to the fascia and Augustine trocar technique was used to enter the abdominal without injuring any abdominal viscera, started by low flow gas insufflation followed by a high flow, started with a 10 mm laparoscope and under direct vision there was no evidence of any injuries, the scope then switched to a 30? ,10 millimeter scope and under direct visualization 5 millimeter trocar was inserted in the epigastric region followed by two 5 mm trocars were inserted in the right upper quadrant that was done after injection of local lidocaine 2% at all incision sites. Gallbladder showed chronic cholecystitis and mild hepatomegaly Patient was then positioned in the head up and tilted to the left Ratcheted forceps were introduced into the lateral most 5mm port and was applied unto the fundus of the gallbladder cephalad and using Bullet forceps the infundibulum of the gallbladder was retracted laterally. Using [place] forceps then L-hook cautery to dissect the peritoneum overlying the Calot's triangle which was then opened medially and laterally until the cystic duct and the cystic artery were skeletonized. Dissection was carried along the body of the gallbladder and after ensuring critical view of safety was identfied. Cystic duct and cystic artery where seen connected to the gallbladder. Clips were applied on the cystic duct towards the common bile duct 1 towards the gallbladder then divided is in sharp scissors, 2 clips were then applied onto the cystic artery and 1 towards the gallbladder and divided by sharp scissors. Dissection was then carried along of the gallbladder from the gallbladder fossa using cautery as well as sharp dissection with heat energy. The gallbladder then was dissected out from the gallbladder fossa totally , cholecystectomy was then achieved and was placed in an Endo Catch bag and then retrieved from the Augustine trocar site under direct visualization using a 5 mm 30? scope through the epigastric trocar, specimen was then passed to the circulating nurse to go for permanent pathology,irrigation and hemostasis was done to the gallbladder fossa after hemostasis was secured and accomplished by placement of pieces of Surgicel at the gallbladder fossa, final survey laparoscopy was done that showed no injuries.Suction irrigation was obtained. The infraumbilical fascial defect was then closed using interrupted PDS sutures using a fascial closure device ;Mumtaz Hicks under direct visualization. Gas was allowed to deflate,Trocars were then taken out under direct vision there was no evidence of bleeding Specimen was passed to the circulating nurse for permanent pathology. No drains were placed and the infraumbilical incision as well as all trocar sites were closed by 3-0 Vicryl followed by 4-0 Monocryl to approximate the skin edges.Dressing was applied in the form of surgical glue and the patient patient got extubated and was taken to recovery area in a stable condition. Count of sponges, needles and instruments were completed at the end of the procedure I was present for the whole entire procedure.
[2020-12-20] MEDS: fentaNYL 50 mcg/mL INJ 2mL IVP (14:32)
--- NOTE | 2020-12-20 14:57 | ANE.PACU2 ---
Inpatient post-anesthesia follow up: Airway intact: Yes Vital signs: Temperature 97.7 F Pulse Rate 50 Respiratory Rate 16 Blood Pressure 166/97 Pulse Oximetry 100 Oxygen Delivery Me thod Room Air Oxygen Flow Rate 6 Fraction of Inspir ed Oxygen Hydration adequate: Yes Nausea and vomiting: No Pain level: 3 Mental status: Baseline
[2020-12-20] MEDS: ondansetron 2 mg/ML SDV 2 mL 4 MG IVP ×2 (14:59→15:31)
--- NOTE | 2020-12-20 15:33 | SUR.PHASEII ---
RE MEDICATED FOR NAUSEA
--- NOTE | 2020-12-20 16:14 | SUR.PHASEII ---
patient with relief of nausea. ice chips given.
--- NOTE | 2020-12-20 16:23 | SUR.PHASEII ---
SURGICAL SITES EVALUATED. NO BLEEDING NOTED. PATIENT WITH RELIEF OF NAUSEA. PATIENT AMBULATEDTO BATHROOM AND BACK.
== END 2020-12-20 16:38 | disposition home or self-care (01) ==
PROVIDERS: Visit Provider Surgery
PROC: 0FT44ZZ Resection of Gallbladder, Percutaneous Endoscopic Approach (ICD-10-PCS; CPT 47562; principal; 2020-12-20 11:40)
DX: K81.1 Chronic cholecystitis (principal); J44.9 Chronic obstructive pulmonary disease, unspecified; K21.9 Gastro-esophageal reflux disease without esophagitis; E66.01 Morbid (severe) obesity due to excess calories; Z68.35 Body mass index [BMI] 35.0-35.9, adult; F17.290 Nicotine dependence, other tobacco product, uncomplicated; Z82.49 Family history of ischemic heart disease and other diseases of the circulatory system
CPT/HCPCS: 47562; 81025; 84703; 88304; 96365; 96372; 96374; J0295; J1100; J1644; J2250; J2405; J2704; J2710; J3010; J3490; J7030

== ENCOUNTER → 2020-12-22 10:29 | Outpatient (BNVA) | payer BC, MEDICAID, SELFPAY | PROVIDERS: Visit Provider Nurse Practitioner Family | DX: R10.9 Unspecified abdominal pain (principal) | CPT/HCPCS: 81000; 87086 ==

== ENCOUNTER 2020-12-28 13:44 | Outpatient (CLI) | payer BC, MEDICAID, SELFPAY ==
--- NOTE | 2020-12-28 14:00 | US_ITS ---
WS: [id number] ULTRASOUND-GUIDED RIGHT BREAST BIOPSY HISTORY: N63.10 - Unspecified lump in the right breast, COMPARISON: 12/15/2020 Procedure, risks and complications are explained to the patient. Medications are reviewed. Consent is obtained. The mass in the RIGHT breast is localized with ultrasound. Mass localizes to 8:00, 2 cm from the nipp le. Skin is cleansed with ChloraPrep and anesthetized with 1% buffered lidocaine. Small dermatome is made. Under sterile conditions mass is biopsied with a 14-gauge Achieve needle. Multiple core biopsie s are performed. Material placed in formalin and sent to pathology for review. No complications encou ntered. Breast tissue marker (Bard ultrasound enhanced ribbon): Single. Patient left the radiology suite with no complications. Patient is instructed to return to [facility] or [facility] with any concerns. US/[place] [id number] IMPRESSION: 1. Uncomplicated core needle biopsy RIGHT breast mass at 8:00. PATHOLOGY: Fibroadenoma. RECOMMENDATION: Return to annual screening.
== END 2020-12-28 13:45 | disposition home or self-care (01) ==
LOC: RAD 13:45
PROVIDERS: Visit Provider Surgery
DX: N63.13 Unspecified lump in the right breast, lower outer quadrant (principal); D24.1 Benign neoplasm of right breast
CPT/HCPCS: 19083; 88305